=== PATIENT | male | born 1965 ===

== ENCOUNTER 2017-04-08 11:11 | Emergency (ER) | payer BC ==
[2017-04-08] MEDS ORDERED: DOXYcycline CAP(*) 100 MG PO ONE (13:30)
--- NOTE | 2017-04-08 13:31 | UC ---
I, Oh,Sosydney, scribed for Desiree Tafoya MD on 04/08/17 at 1328 . Skin Complaint HPI - HPI Summary HPI Summary: This 51 y/o male presents to [facility] for gradually worsening left axillary bump since 4 days ago. 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 Pt suspect the swelling is due to possible bug bite although is not sure. Pt states his wound became increased in size. States drained some. pt with progressive erythema around wound. Pt states on the weekend had subjective fever (tactile only), fatigue, and general myalgia these symptoms worse on Saturday, but improved. Negative n/v or any known tick bite. PT states here today because reddness has "spread." Pt took APAP to control his fever q6h 2-3 days ago. PMHx includes shingle 3 years ago and borderline HTN. Pt is unsure if he is UTD with tetanus. Nonsmoker. Rare drinker. Pt works as water resources engineer. Med list is reviewed. - History of Current Complaint Chief Complaint: UCSkin Time Seen by Provider: 04/08/17 12:59 Stated Complaint: SKIN ISSUE Hx Obtained From: Patient Onset/Duration: Gradual Onset, Still Present Skin Exposure Onset/Duration: Days Ago Timing: Constant Location: Other - left arm pit Character: Raised Aggravating: Nothing Alleviating: Nothing Associated Signs & Symptoms: Positive: Fever - subjective. Negative: Nausea, Vomiting - Allergy/Home Medications Allergies/Adverse Reactions: Allergies Allergy/AdvReac Type Severity Reaction Status Date / Time No Known Allergies Allergy Verified 04/08/17 11:31 Review of Systems Constitutional: Fever - subjective, Chills, Fatigue Skin: Other - swelling at left arm pit Eyes: Negative ENT: Negative Respiratory: Negative Cardiovascular: Negative Gastrointestinal: Negative Genitourinary: Negative Motor: Negative Neurovascular: Negative Musculoskeletal: Myalgia - general Psychological: Negative All Other Systems Reviewed And Are Negative: Yes PMH/Surg Hx/FS Hx/Imm Hx Cardiovascular History: Hypertension - borderline - Surgical History Surgical History: None - Family History Known Family History: Negative: Hypertension, Diabetes - Social History Alcohol Use: Rare Substance Use Type: None Smoking Status (MU): Never Smoked Tobacco Physical Exam Triage Information Reviewed: Yes Appearance: Well-Appearing, No Pain Distress, Well-Nourished Vital Signs: Initial Vital Signs Temp 98 F 04/08/17 11:32 Pulse 89 04/08/17 11:32 Resp 17 04/08/17 11:32 BP 152/94 04/08/17 11:32 Pulse Ox 99 04/08/17 11:32 Vital Signs Reviewed: Yes Eye Exam: Normal Neck exam: Normal Neck: Positive: Supple, Nontender, No Lymphadenopathy Respiratory Exam: Normal Respiratory: Positive: Chest non-tender, Lungs clear, Normal breath sounds Cardiovascular Exam: Normal Cardiovascular: Positive: RRR, No Murmur, Pulses Normal Abdominal Exam: Normal Abdomen Description: Positive: Nontender, No Organomegaly Musculoskeletal Exam: Normal Musculoskeletal: Positive: Strength Intact Neurological Exam: Normal Neurological: Positive: Alert Psychological Exam: Normal Skin: Positive: Other - Pt with 4x4 area of erythema and warmth left axilla. in approx center small inflammed follicle. No induration, drainage, odor, fluctuance Course/Dx - Course Course Of Treatment: Pt with erythema to wound in left axilla. No fluctuance. No drainage. warmth. Central area of initial folliculitis vs bug bite with surrounding erythema. No drainage, no fluctuance, non tender, not indurated. Will demarcate. Doxycyclline 100mg. recheck with PCP. return precautions discussed - Diagnoses Provider Diagnoses: cellulitis Discharge - Discharge Plan Condition: Stable Disposition: HOME Prescriptions: DOXYcycline CAP(*) [DOXYcycline 100MG CAP(*)] 100 mg PO BID #20 cap DOXYcycline CAP(*) [DOXYcycline 100MG CAP(*)] 100 mg PO BID #20 cap Patient Education Materials: Cellulitis (ED) Referrals: No Primary Care Phys,NOPCP [Primary Care Provider] - Additional Instructions: - Stay well hydrated. Drink plenty of non-alcoholic, non-caffinated beverages - Take antibiotics 2 times a day as prescribed until gone - apply warm, wet soaks to your wound 2-3 times a day for 20 minutes each time - Take acetaminophen 2 tablets eery 6 hours for pain or fever - Schedule a recheck appointment with your doctor at the end of next week. If you notice progressive reddness, increased pain, or drainage after 4 doses of antibiotics - it is recommended you call your doctor or go to the emergency department The documentation as recorded by the Anuj grimaldo Soohyun accurately reflects the service I personally performed and the decisions made by , Desiree Tafoya MD.
== END 2017-04-08 13:45 | disposition home or self-care (01) ==
LOC: UCEAST 11:11
DX: L03.112 Cellulitis of left axilla (principal); R50.9 Fever, unspecified; M79.1 Myalgia; R03.0 Elevated blood-pressure reading, without diagnosis of hypertension
CPT/HCPCS: 99202; A9270-GY; G0463